=== PATIENT | male | born 1980 | race Caucasian/White ===

== ENCOUNTER 2018-06-30 13:02 | Emergency (ER) | payer OTHER, SELFPAY ==
[~2018-06-30] VITALS: Ht 177.8 cm; Wt 81.8 kg
[2018-06-30 13:03] VITALS: BP 169/105
--- NOTE | 2018-06-30 13:55 | ED PDOC ---
Post-Departure Follow-Up Patient left AMA after discussing what the next steps in treatment would be. Discussed that we would not give any narcotics at this time since he has already taken and has been prescribed Percocet and Soma. Patient became angry and stated "This is a waste of time." Patient then walked out of the room and left the facility without signing any AMA forms or discussing the rest of the treatment plan. LENI Heredia BROOKE D. PA-C Jun 30, 2018 13:55
--- NOTE | 2018-06-30 13:56 | REP ---
RIGHT SHOULDER SERIES: Three views. HISTORY: Severe pain. FINDINGS: The right glenohumeral and acromioclavicular joints are normally aligned. There is a small bone island in the humeral head. No fracture or subluxation is seen. Periarticular soft tissues are unremarkable. IMPRESSION: Negative radiographs of the right shoulder. Electronically Signed by Jose Sherwood MD 06/30/2018 06:17 P
[2018-06-30] MEDS ORDERED: MELO15TA28 (14:32)
== END 2018-06-30 14:37 | disposition left against medical advice (07) ==
LOC: M ED 13:02
DX: M25.511 Pain in right shoulder (principal); Z79.899 Other long term (current) drug therapy

== ENCOUNTER 2018-06-30 14:26 | Emergency (ER) | payer OTHER ==
[~2018-06-30] VITALS: Ht 177.8 cm; Wt 81.8 kg
[2018-06-30 14:26] VITALS: BP 140/84
[2018-06-30] MEDS ORDERED: MELO15TA28 (14:32)
[2018-06-30] MEDS ORDERED: KETOROLAC 60 MG/2 ML VIAL (J1885) IM ONE (15:45)
[2018-06-30] MEDS ORDERED: diazePAM 10 MG TAB PO ONE (15:45)
== END 2018-06-30 16:27 | disposition left against medical advice (07) ==
LOC: M ED 14:26
DX: S46.811A Strain of other muscles, fascia and tendons at shoulder and upper arm level, right arm, initial encounter (principal); X58.XXXA Exposure to other specified factors, initial encounter; Y92.89 Other specified places as the place of occurrence of the external cause; F17.200 Nicotine dependence, unspecified, uncomplicated
CPT/HCPCS: 96372; 99281; J1885

== ENCOUNTER 2020-11-01 19:14 | Emergency (ER) | payer OTHER ==
[~2020-11-01] VITALS: Ht 177.8 cm; Wt 81.8 kg
[~2020-11-01 19:14] MED LIST: MELO15TA28
[2020-11-01 19:15] VITALS: BP 140/88
[2020-11-01] MEDS ORDERED: ONDANSETRON 4 MG ORAL DISINTEGRATING TAB PO ONE (20:55)
[2020-11-01] MEDS ORDERED: KETOROLAC 60MG 2ML VIAL IM ONE (20:55)
[2020-11-01] MEDS ORDERED: CYCLOBENZAPRINE 5MG TABLET PO ONE (20:55)
[2020-11-01] MEDS ORDERED: cloNIDine 0.1MG TABLET PO ONE (20:55)
[2020-11-01] MEDS ORDERED: ONDA4TAB6 PO (20:59)
[2020-11-01] MEDS ORDERED: CLONI1TA PO (20:59)
[2020-11-01] MEDS ORDERED: CYCL5TAB PO (20:59)
[2020-11-01] MEDS ORDERED: NAPR-837 PO (20:59)
== END 2020-11-01 21:45 | disposition home or self-care (01) ==
LOC: M ED 19:14
DX: F11.13 Opioid abuse with withdrawal (principal); F10.11 Alcohol abuse, in remission; F17.210 Nicotine dependence, cigarettes, uncomplicated; F12.20 Cannabis dependence, uncomplicated
CPT/HCPCS: 96372; 99283; J1885; Q0162